=== PATIENT | male | born 1985 | race Caucasian/White ===

== ENCOUNTER 2017-09-29 17:00 | Emergency (ER) | payer SELFPAY ==
[~2017-09-29] VITALS: Ht 172.7 cm; Wt 104.0 kg
[~2017-09-29 17:00] MED LIST: ZOFRAN4 MG/TAB PO
[2017-09-29] MEDS ORDERED: LORTAB 5/3255 MG PO (17:25)
[2017-09-29] MEDS ORDERED: AUGMENTIN875TAB PO (17:25)
[2017-09-29] MEDS ORDERED: MOTRIN800 MG PO (17:26)
[2017-09-29 18:33] VITALS: BP 135/80
== END 2017-09-29 18:35 | disposition home or self-care (01) | DRG 605 ==
LOC: ED 17:00
DX: S61.256A Open bite of right little finger without damage to nail, initial encounter (principal); Y04.1XXA Assault by human bite, initial encounter; Y92.89 Other specified places as the place of occurrence of the external cause

== ENCOUNTER 2017-10-01 11:47 | Emergency (ER) | payer SELFPAY ==
[~2017-10-01] VITALS: Ht 172.7 cm; Wt 110.0 kg
[~2017-10-01 11:47] MED LIST changes: +AUGMENTIN875TAB PO; +LORTAB 5/3255 MG PO; +MOTRIN800 MG PO
[2017-10-01] MEDS ORDERED: BACTRIM DS1 TAB PO (12:43)
[2017-10-01] MEDS ORDERED: PERCOCET 5/325M1 TAB PO (13:00)
[2017-10-01 13:22] VITALS: BP 127/63
== END 2017-10-01 13:34 | disposition home or self-care (01) | DRG 603 ==
LOC: ED 11:47
DX: L03.011 Cellulitis of right finger (principal); R22.31 Localized swelling, mass and lump, right upper limb